=== PATIENT | male | born 1950 | race Two or more races ===

== ENCOUNTER 2024-11-27 13:54 | Emergency (ER) | payer OTHER ==
[~2024-11-27] VITALS: Ht 172.7 cm; Wt 82.6 kg
--- NOTE | 2024-11-27 14:42 | ED.PDOC ---
History of Present Illness HPI Comments Mr. Rodriguez is a 73-year-old male with prior medical history of hypertension and hyperlipidemia, who presents today with chief complaint of bilateral lower extremity swelling. He refers onset of bilateral leg swelling approximately 7- 10 days ago, greater on the left than the right, associated with bilateral sharp intermittent calf pain, radiating up to the knees, 8/10 intensity, worsened by walking, without relieving factors. Additionally refers that the pain wakes him up. The patient denies any previous trauma, cardiac history, shortness of breath, chest pain, and redness of lower extremities. Due to persistence of symptoms he presented to the emergency department for further evaluation. Chief Complaint: Extremity Swelling Time Seen by MD: 14:20 Primary Care Provider: Dr. Dennis Allergies: Coded Allergies: NO KNOWN ALLERGIES (Unverified , 11/27/24) Information Source: Patient Mode of Arrival: Ambulatory Severity: Mild Timing: Days Duration: Since onset Past Medical History PAST MEDICAL HISTORY: High Lipids, HTN Surgical History: Denies all surgeries Family History Family History: No family hx of Cancer (Father with colon cancer), No family hx of DM (Mother) Social History Smoker: Quit Greater Than 1 Year (The patient says he smoked a pack a day for 30 years with cessation 20 years ago) Alcohol: Occasionally Drugs: Denies Drug Use Lives In: Home Constitutional: denies: chills, diaphoresis, fatigue, fever, malaise, sweats, weakness Respiratory: denies: cough, hemoptysis, orthopnea, SOB at rest, shortness of breath, SOB with excertion Cardiovascular: reports: edema (Bilateral lower extremity edema greater on the left than the right); denies: chest pain, dizzy spells, diaphoresis, Dyspnea on exertion, irregular heart beat, left arm pain, lightheadedness, palpitations Gastrointestinal: denies: abdomen distended, abdominal pain, constipated, diarrhea, dysphagia, difficulty swallowing, hematemesis, melena, nausea, poor appetite, poor fluid intake, rectal bleeding, rectal pain, vomiting Genitourinary: denies: burning, dysuria, flank pain, frequency, hematuria, incontinence, pain, testicle pain Neurological: denies: dizziness, fainting, headache, paresthesia, seizure, tingling, tremors, weakness Musculoskeletal: denies: back pain, joint pain, joint swelling, muscle pain, muscle stiffness, neck pain Physical Exam General Appearance: Normal HEENT: Normal ENT Inspection, PERRL/EOMI, Pharynx Normal Neck: Full Range of Motion, Non-Tender, Normal Inspection Respiratory: Lungs Clear, No Accessory Muscle Use, No Respiratory Distress, Normal Breath Sounds Cardiovascular: No Murmur, No Gallop, Normal Peripheral Pulses, Regular Rate/Rhythm, Other (Bilateral edema L > R , extending to mid calf in left with minimal pitting, extending above ankle in right leg 2+ pitting, no pain on palpation ) Breast Exam: Deferred Gastrointestinal: No Organomegaly, Non Tender, No Pulsatile Mass, Normal Bowel Sounds Genitalia: Deferred Pelvic: Deferred Rectal: Deferred Extremities: Leg edema (As above ), Normal capillary refill, Non-tender Neurologic: No Motor Deficits, Normal Affect, Normal Mood Cerebellar Function: Normal Reflexes: Normal Skin: Normal Color Lymphatic: No Adenopathy Was a procedure done? Was a procedure done?: No EKG EKG : Pulse Rate (adult): 74 [place]: Normal Cardiac Rhythm: NSR Block: None Hypertrophy: None ST: Normal Differential Dx Considerations may include: Congestive heart failure, DVT, lymphedema, hematoma, cellulitis X-Ray, Labs, Meds, VS Vital Signs Date Time Temp Pulse Resp B/P (MAP) Pulse Ox O2 Delivery O2 Flow Rate FiO2 11/27/24 13:56 97.0 88 15 123/74 98 97.0 Lab Test 11/27/24 15:28 Range/Units White Blood Count 5.9 4.4-10.8 10^3/uL Red Blood Count 4.70 4.5-5.90 10^6/uL Hemoglobin 13.1 L 13.5-17.5 g/dL Hematocrit 39.7 L 41.0-53.0 % Mean Corpuscular Volume 84.6 80.0-100.0 fL Mean Corpuscular Hemoglobin 27.9 L 28.0-32.0 pg Mean Corpuscular Hemoglobin Concent 33.0 32.0-36.0 g/dL Red Cell Distribution Width 14.7 H 11.8-14.3 % Platelet Count 203 140-450 10^3/uL Mean Platelet Volume 9.2 6.9-10.8 fL Neutrophils (%) (Auto) 68.3 37.0-80.0 % Lymphocytes (%) (Auto) 19.1 10.0-50.0 % Monocytes (%) (Auto) 11.4 0.0-12.0 % Eosinophils (%) (Auto) 0.8 0.0-7.0 % Basophils (%) (Auto) 0.4 0.0-2.0 % Neutrophils # (Auto) 4.1 1.6-8.6 10 ^3/uL Lymphocytes # (Auto) 1.1 0.4-5.4 10 ^3/uL Monocytes # (Auto) 0.7 0-1.3 10 ^3/uL Eosinophils # (Auto) 0 0-0.8 10 ^3/uL Basophils # (Auto) 0 0-0.2 10 ^3/uL Nucleated Red Blood Cells 0.0 % Sodium Level 141 136-145 mmol/L Potassium Level 4.0 3.5-5.1 mmol/L Chloride Level 104 98-107 mmol/L Carbon Dioxide Level 30 20-31 mmol/L Anion Gap 7 5-15 Blood Urea Nitrogen 13 9-23 mg/dL Creatinine 0.84 0.700-1.30 mg/dL Glomerular Filtration Rate Calc 91 >90 mL/min BUN/Creatinine Ratio 15.5 10.0-20.0 Serum Glucose 116 H 74-106 mg/dL Calcium Level 9.3 8.7-10.4 mg/dL Troponin I High Sensitivity 3 L </=54 ng/L B-Type Natriuretic Peptide 21.27 0-100 pg/mL Time of 1ST Reevaluation: 16:30 Reevaluation 1ST: Unchanged Patient Education/Counseling: Diagnosis, Treatment, Need For Follow Up Family Education/Counseling: No Family Present SEPSIS Sepsis Screen Date sepsis recognized/suspect: Nov 27, 2024 Time Sepsis recognized/suspect: 1358 Recent Procedure: No On Antibiotic Therapy: No Respiratory Rate >20: No Heart Rate >90: No Temp<36 C (96.8 F) or >38.3 C: No SBP <90 or MAP <65 mmHG: No New Acute Mental Status Change: No Is the patient on CPAP, BIPAP,: No Physician Orders Bilat Lower Dvt (11/27/24 14:39) Troponin-I Hs (11/27/24 15:39) Vital Signs Date Time Temp Pulse Resp B/P (MAP) Pulse Ox O2 Delivery O2 Flow Rate FiO2 11/27/24 13:56 97.0 88 15 123/74 98 97.0 Laboratory Tests Test 11/27/24 15:28 White Blood Count 5.9 10^3/uL (4.4-10.8) Departure 1 Departure Time of Disposition: 16:32 Impression: Primary Impression: Leg edema Disposition: HOME / SELF CARE / HOMELESS Condition: Stable Additional Instructions: You came in with chief complaint of bilateral leg swelling and pain Your workup today was benign including labs, troponin, EKG Your leg swelling may be due to cardiac reasons, lymphedema, or many other factors It is important to follow up with your regular doctor within a week for further workup and monitoring If your symptoms worsen or you have any other concerns please return to the emergency room Discharged With: Self Critical Care Note Critical Care Time?: No Stability Stability form required: JADE Cam RESIDENT Nov 27, 2024 14:42
--- NOTE | 2024-11-27 15:17 | DVH ---
Bilateral lower extremity venous duplex Clinical History: R/o DVT edema Comparison: None Findings: Duplex Doppler evaluation of the deep venous systems of both lower extremities from the common femora l veins to the popliteal veins including color Doppler and spectral/pulsed waveform analysis was perf ormed. RIGHT SIDE: The common femoral vein demonstrates appropriate compressibility and waveform variability. There is compressibility/patency of the great saphenous vein at the proximal thigh. The femoral vein demonstrates appropriate compressibility and waveform variability. The deep femoral vein demonstrates appropriate compressibility and waveform variability. The popliteal vein demonstrates appropriate compressibility and waveform variability. There is normal compressibility at the tibioperoneal trunk. 3 cm right popliteal fossa kidd's cyst LEFT SIDE: The common femoral vein demonstrates appropriate compressibility and waveform variability. There is compressibility/patency of the great saphenous vein at the proximal thigh. The femoral vein demonstrates appropriate compressibility and waveform variability. The deep femoral vein demonstrates appropriate compressibility and waveform variability. The popliteal vein demonstrates appropriate compressibility and waveform variability. There is normal compressibility at the tibioperoneal trunk. IMPRESSION: No right or left femoropopliteal venous thrombosis. If clinical concern/symptoms persist or worsen, short-interval follow-up study is suggested. END IMPRESSION:
[2024-11-27 15:48] LABS: Chloride 104 mmol/L (98-107); Hematocrit 39.7 % (41.0-53.0); Hemoglobin 13.1 g/dL (13.5-17.5); Mean Corpuscular Hemoglobin 27.9 pg (28.0-32.0); Mean Corpuscular Volume 84.6 fL (80.0-100.0); Nucleated Red Blood Cells % 0.0 %; Potassium 4.0 mmol/L (3.5-5.1); Sodium 141 mmol/L (136-145)
[2024-11-27 15:49] LABS: Anion Gap 7 (5-15); Carbon Dioxide 30 mmol/L (20-31)
[2024-11-27 15:50] LABS: Calcium 9.3 mg/dL (8.7-10.4)
[2024-11-27 15:55] LABS: BUN/Creatinine Ratio 15.5 (10.0-20.0); Blood Urea Nitrogen 13 mg/dL (9-23); Glucose 116 mg/dL (74-106)
--- NOTE | 2024-11-27 17:17 | ECG ---
[facility] Test Date: 2024-11-27 Test Time: 17:16:13 Pat Name: NIA DELONG Department: [facility] ED Patient ID: [id number] Room: Gender: M [place]: am : 1950 Requested By: JADE PEARSON Order Number: [id number] Reading MD: Measurements Intervals [place] Rate: 74 P: 54 OK: 206 QRS: 50 QRSD: 105 T: 45 QT: 384 QTc: 426 Interpretive Statements Sinus rhythm Please click the below link to view image of tracing.
[2024-11-27 17:40] VITALS: BP 135/81; PULSE 75; RESP 20; TEMP 97.6; O2SAT 98
== END 2024-11-27 17:56 | disposition home or self-care (01) ==
LOC: ER 13:54
DX: R60.0 Localized edema (principal); M79.661 Pain in right lower leg; M79.662 Pain in left lower leg; I10 Essential (primary) hypertension; E78.5 Hyperlipidemia, unspecified
CPT/HCPCS: 36415; 80048; 83880; 84484; 85025; 93005; 93970